=== PATIENT | male | born 1975 | race Caucasian/White ===

== ENCOUNTER 2018-03-08 09:46 | Emergency (ER) | payer OTHER ==
[~2018-03-08] VITALS: Ht 177.8 cm; Wt 83.9 kg
[~2018-03-08 09:46] MED LIST: ALBU90OI INH; BENZ100A PO; DOXY100 PO; HYDACE5 PO; KETO10 PO; Naprosyn500 MG PO; OXYACE5T PO; PENVK500 PO; PRED20 PO; PROCODE120 PO; Ultram50 MG PO
[2018-03-08] MEDS ORDERED: TRIA15CR3 TOP (11:10)
[2018-03-08] MEDS ORDERED: Prednisone20 MG PO (11:10)
== END 2018-03-08 11:17 | disposition home or self-care (01) ==
LOC: ER 09:46
DX: L23.7 Allergic contact dermatitis due to plants, except food (principal); J44.9 Chronic obstructive pulmonary disease, unspecified; Z87.891 Personal history of nicotine dependence; Z88.5 Allergy status to narcotic agent
CPT/HCPCS: 96372; 99283; J3301

== ENCOUNTER 2018-05-13 11:58 | Emergency (ER) | payer OTHER ==
[~2018-05-13] VITALS: Ht 175.3 cm; Wt 83.9 kg
[~2018-05-13 11:58] MED LIST changes: +Prednisone20 MG PO; +TRIA15CR3 TOP
== END 2018-05-13 13:15 | disposition home or self-care (01) ==
LOC: ER 11:58
DX: S51.811A Laceration without foreign body of right forearm, initial encounter (principal); W29.3XXA Contact with powered garden and outdoor hand tools and machinery, initial encounter; Z88.5 Allergy status to narcotic agent; Z79.899 Other long term (current) drug therapy; Z79.52 Long term (current) use of systemic steroids; Z87.891 Personal history of nicotine dependence; J44.9 Chronic obstructive pulmonary disease, unspecified
CPT/HCPCS: 12001; 90471; 90714; 99283

== ENCOUNTER 2020-07-11 02:41 | Emergency (ER) | payer OTHER ==
[~2020-07-11] VITALS: Ht 175.3 cm; Wt 83.9 kg
== END 2020-07-11 04:46 | disposition home or self-care (01) ==
LOC: ER 02:41
DX: S01.01XA Laceration without foreign body of scalp, initial encounter (principal); Z88.5 Allergy status to narcotic agent; F17.220 Nicotine dependence, chewing tobacco, uncomplicated; W22.8XXA Striking against or struck by other objects, initial encounter; Y92.89 Other specified places as the place of occurrence of the external cause; Y99.0 Civilian activity done for income or pay
CPT/HCPCS: 12002; 70450; 72125; 99283-25

== ENCOUNTER 2020-07-12 13:10 | Emergency (ER) | payer OTHER ==
[~2020-07-12] VITALS: Ht 175.3 cm; Wt 81.7 kg
== END 2020-07-12 14:50 | disposition home or self-care (01) ==
LOC: ER 13:10
DX: S06.0X0A Concussion without loss of consciousness, initial encounter (principal); T14.8XXA Other injury of unspecified body region, initial encounter; F17.220 Nicotine dependence, chewing tobacco, uncomplicated; Z88.5 Allergy status to narcotic agent; J44.9 Chronic obstructive pulmonary disease, unspecified; W18.30XA Fall on same level, unspecified, initial encounter; Y92.89 Other specified places as the place of occurrence of the external cause; Y99.0 Civilian activity done for income or pay
CPT/HCPCS: 99283

== ENCOUNTER 2020-07-17 04:11 | Emergency (ER) | payer OTHER | END 2020-07-17 05:25 | disposition left against medical advice (07) | LOC: ER 04:11 | DX: Z53.21 Procedure and treatment not carried out due to patient leaving prior to being seen by health care provider (principal) ==

== ENCOUNTER 2020-07-18 12:43 | Emergency (ER) | payer OTHER ==
[~2020-07-18] VITALS: Ht 175.3 cm; Wt 81.7 kg
== END 2020-07-18 12:55 | disposition home or self-care (01) ==
LOC: ER 12:43
DX: S01.01XD Laceration without foreign body of scalp, subsequent encounter (principal); J44.9 Chronic obstructive pulmonary disease, unspecified; F17.220 Nicotine dependence, chewing tobacco, uncomplicated; Z88.5 Allergy status to narcotic agent; X58.XXXD Exposure to other specified factors, subsequent encounter